=== PATIENT | male | born 1965 | race Caucasian/White ===

== ENCOUNTER 2022-03-21 11:28 | Emergency (ER) | payer MEDICARE, MEDICAID ==
[~2022-03-21] VITALS: Ht 167.6 cm; Wt 100.0 kg
[2022-03-21 11:31] VITALS: BP 193/93
[2022-03-21] MEDS ORDERED: DOXYCYCLINE 100MG CAPSULE PO STA (15:34)
[2022-03-21] MEDS ORDERED: cephalexin 500mg capsule PO ONE (15:35)
[2022-03-21] MEDS ORDERED: DOXY100C77 PO (15:38)
[2022-03-21] MEDS ORDERED: CEPH500C2 PO (15:38)
== END 2022-03-21 15:52 | disposition home or self-care (01) ==
LOC: ER 11:29
DX: L03.114 Cellulitis of left upper limb (principal); F15.20 Other stimulant dependence, uncomplicated; Z88.8 Allergy status to other drugs, medicaments and biological substances; Z87.891 Personal history of nicotine dependence
CPT/HCPCS: 99284